=== PATIENT | male | born 1970 | race Caucasian/White ===

== ENCOUNTER 2017-12-06 11:18 | Emergency (ER) | payer OTHER ==
--- NOTE | 2017-12-06 12:49 | EDPHY ---
General Time Seen by Provider: 12/06/17 12:31 Narrative: CHIEF COMPLAINT: "I have a hernia" HISTORY OF PRESENT ILLNESS: Patient presents with complaints of "I have a hernia."He reports feeling a bulge and pain in the right groin since last Thursday, 8 days ago. He was performing resistance training this happened. Mild pain at 1st that has steadily increased. It is now severe at times. Nausea but no vomiting. No constipation. Pain is also involved the left lower side of the abdomen. He has no testicular pain. No painful urination. The symptoms are similar to when he had a previous hernia. He was waiting to call his doctor tomorrow morning, but his pain is not too severe. No other associated complaints or modifying factors. REVIEW OF SYSTEMS: Ten systems reviewed and are negative unless otherwise noted in the HPI SPECIALISTS: General surgeon 1999 PAST MEDICAL HISTORY: Left inguinal hernia, PAST SURGICAL HISTORY: Left inguinal hernia 1999 SOCIAL HISTORY: Nonsmoker. Works as a commercial lending relationship manager. Lives here locally with spouse FAMILY HISTORY: Noncontributory EXAMINATION General Appearance: Alert, no distress Head: normocephalic, atraumatic Eyes: Pupils equal and round, no conjunctival pallor or injection ENT, Mouth: Mucous membranes moist Neck: Normal inspection, supple, non-tender Respiratory: Lungs are clear to auscultation Cardiovascular: Regular rate and rhythm Gastrointestinal: Bowel sounds present all 4 quadrants Abdomen is soft and nondistended. There is fullness and tenderness in the right groin right lower quadrant. : Circumcised penis without discharge. There is no tenderness of the testicles. Normal cremasteric reflex. Back: non-tender, no bony abnormalities Neurological: A&O, nonfocal, normal gait Skin: Warm and dry, no rash. No petechiae or purpura Extremities: Nontender, no pedal edema Psychiatric: Mood and affect normal DIFFERENTIAL DIAGNOSES: Including but not limited to inguinal hernia, femoral hernia, incarcerated hernia, strangulated hernia, appendicitis, colitis, diverticulitis MDM: 12:30 p.m. Abdominal pain of the lower quadrants with suspected right inguinal hernia. He is status post left inguinal hernia repair 18 years ago. No vomiting but nauseated. Vital signs are within normal limits. I have ordered ultrasound laboratory studies. Pain medication has been ordered for the ultrasound. 1:15 p.m. Laboratory studies are within normal limits with no leukocytosis. Ultrasound is pending. 2:25 p.m. Notified by radiologist Dr. Sosa. Ultrasound reveals no discrete hernia. There is some bulging of the inguinal ligament. 2:35 p.m. Patient re-evaluated. He still has ongoing pain in the right groin right lower abdomen. Given his significant pain, I do feel that CT scan of the abdomen pelvis is warranted. He has consented to this. I have ordered IV fluid as well. 3:45 p.m. Notified by radiologist Dr. Sosa. CT scan abdomen pelvis reveals no acute findings. I re-evaluated the patient and discussed with them. He is relieved to hear this. He is tolerating intake by mouth. He is ambulating without difficulty but with some pain in the right lower groin. Suspect this is a ligamentous sprain versus musculoskeletal strain. We discussed rest, warmth, symptomatic medications. We discussed ED precautions and follow up primary care physicians. I have answered all his questions. He is comfortable this plan. Discharged home stable condition. SUPERVISION: Patient was independently examined, but I discussed the case with my primary supervising physician Dr. Castillo. - History Smoking Status: Never smoked - Objective Vital Signs: Initial Vital Signs Temperature (C) 98.2 F 12/06/17 11:26 Heart Rate 74 12/06/17 11:26 Respiratory Rate 16 12/06/17 11:26 Blood Pressure 144/88 H 12/06/17 11:26 O2 Sat (%) 98 12/06/17 11:26 O2 Delivery Mode Room Air,Nasal Cannula Allergies/Adverse Reactions: Penicillins Allergy (Verified 12/06/17 11:31) Home Medications: Medication Instructions Recorded Cyclobenzaprine [Flexeril 10 MG 10 mg PO TID PRN #15 tab 12/06/17 (*)] oxyCODONE HCL/ACETAMINOPHEN 1 each PO Q4-6PRN PRN #11 tablet 12/06/17 [Percocet 5-325 mg Tablet] Laboratory Results: Laboratory Results 12/06/17 12:41 12/06/17 12:41 Medications Given: Discontinued Medications Hydromorphone HCl (Dilaudid) 1 mg IVP EDNOW ONE Stop: 12/06/17 12:56 Last Admin: 12/06/17 13:04 Dose: 1 mg Sodium Chloride (Ns) 1,000 mls @ 0 mls/hr IV EDNOW ONE; Wide Open PRN Reason: Protocol Stop: 12/06/17 14:40 Last Admin: 12/06/17 14:46 Dose: 1,000 mls Departure - Departure Disposition: Home, Routine, Self-Care Clinical Impression: Strain of muscle of right groin region Condition: Good Instructions: Groin Strain (ED), Musculoskeletal Pain (ED) Additional Instructions: 1. Ibuprofen 600 mg every 8 hr as needed for pain 2. Pain medication as prescribed as needed 3. Flexeril Muscle relaxant as prescribed as needed 4. ED precautions for worsening pain, nausea, vomiting, fever 5. Follow up with primary care physician this week Referrals: Josee Pond [Primary Care Provider] - As per Instructions Prescriptions: Cyclobenzaprine [Flexeril 10 MG (*)] 10 mg PO TID PRN #15 tab PRN Reason: Spasms oxyCODONE HCL/ACETAMINOPHEN [Percocet 5-325 mg Tablet] 1 each PO Q4-6PRN PRN # 11 tablet PRN Reason: Pain, Breakthrough
[2017-12-06 12:52] LABS: PLATELET COUNT 230 10^3/uL (150-400)
[2017-12-06] MEDS ORDERED: HYDROmorphONE/DILAUDID 1 MG/ML INJ IVP ONE (12:55)
[2017-12-06 12:59] LABS: INR 1.02 (0.83-1.16); PROTIME(PATIENT) 13.6 SEC (12.0-15.0)
[2017-12-06] MEDS ORDERED: NS 1,000 ML IV ONE (14:39)
[2017-12-06] MEDS ORDERED: IOPAMIDOL (ISOVUE-300) 100 ML BTL ONE (14:43)
[2017-12-06 16:13] VITALS: BP 136/80
== END 2017-12-06 16:11 | disposition home or self-care (01) ==
DX: S39.011A Strain of muscle, fascia and tendon of abdomen, initial encounter (principal); E86.9 Volume depletion, unspecified; X58.XXXA Exposure to other specified factors, initial encounter; Y99.8 Other external cause status; Y93.89 Activity, other specified
CPT/HCPCS: 96374; J1170; Q9967